=== PATIENT | female | born 1980 | race Caucasian/White ===

== ENCOUNTER 2017-09-14 10:40 | Inpatient (IN) | payer OTHER ==
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
[2017-09-14] MEDS ORDERED: NORMAL SALINE 1000 ML 1,000 ML IV PRN ×2 (11:30→13:50)
[2017-09-14] MEDS ORDERED: ONDANSETRON 4 MG TAB.RAPDIS PO ONE (11:41)
[2017-09-14 11:48] LABS: ABSOLUTE BASOPHILS # (AUTO) 0.1 10^3/uL (0.0-0.2); ABSOLUTE LYMPHOCYTES (AUTO) 1.2 10^3/uL (0.5-4.7); ABSOLUTE MONOCYTES (AUTO) 0.5 10^3/uL (0.1-1.4); ABSOLUTE NEUT (AUTO) 10.9 10^3/uL (1.7-8.2); BASOPHILS % (AUTO) 0.4 % (0-2); HEMATOCRIT 47.1 % (36.0-47.0); HEMOGLOBIN 15.5 g/dL (12.0-15.5); LYMPHOCYTES % (AUTO) 9.9 % (13-45); MEAN CORPUSCULAR VOLUME 88 fl (80-97); MONOCYTES % (AUTO) 3.6 % (3-13); PLATELET COUNT 212 10^3/uL (150-450); RED BLOOD COUNT 5.37 10^6/uL (3.72-5.28); RED CELL DISTRIBUTION WIDTH 13.7 % (11.5-14.0); SEGMENTED NEUTROPHILS % (AUTO) 86.1 % (42-78); TOTAL CELLS COUNTED % (AUTO) 100 %; WHITE BLOOD COUNT 12.7 10^3/uL (4.0-10.5)
[2017-09-14 11:58] LABS: APPEARANCE,URINE SLIGHTLY-CLOUDY; BILIRUBIN,URINE NEGATIVE (NEGATIVE); COLOR,URINE YELLOW; GLUCOSE, URINE >=500 mg/dL (NEGATIVE); KETONES,URINE 80 mg/dL (NEGATIVE); LEUKOCYTE ESTERASE,URINE MODERATE (NEGATIVE); NITRITE,URINE NEGATIVE (NEGATIVE); PROTEIN,URINE 100 mg/dL (NEGATIVE); URINE SPECIFIC GRAVITY 1.027; UROBILINOGEN,URINE NEGATIVE mg/dL (<2.0)
[2017-09-14 12:18] LABS: ALANINE AMINOTRANSFERASE 21 U/L (9-52); ALBUMIN 5.8 g/dL (3.5-5.0); ALKALINE PHOSPHATASE 98 U/L (38-126); ASPARTATE AMINO TRANSFERASE 19 U/L (14-36); BILIRUBIN,DIRECT 0.7 mg/dL (0.0-0.4); BILIRUBIN,TOTAL 1.7 mg/dL (0.2-1.3); BLOOD UREA NITROGEN 31 mg/dL (7-20); CALCIUM 10.7 mg/dL (8.4-10.2); LIPASE 48.7 U/L (23-300); POTASSIUM 5.7 mmol/L (3.6-5.0); TOTAL PROTEIN 9.7 g/dL (6.3-8.2)
[2017-09-14 12:23] LABS: CHLORIDE 94 mmol/L (98-107); SODIUM 137.4 mmol/L (137-145)
[2017-09-14] MEDS ORDERED: CEFTRIAXONE INJ 1000 MG VIAL IV ONE ×2 (12:27→12:54)
[2017-09-14 12:34] LABS: CARBON DIOXIDE 9 mmol/L (22-30)
[2017-09-14 12:38] LABS: ANION GAP 34 (5-19)
[2017-09-14 12:41] LABS: GLUCOSE 654 mg/dL (75-110)
[2017-09-14] MEDS ORDERED: INSULIN REG, HUMAN 100 UNIT/ML 3 ML VIAL (PYX) IV ONE ×2 (12:48→12:49)
[2017-09-14] MEDS ORDERED: LEVALBUTEROL HCL NEB 0.63 MG/3 ML AMPUL NEB PRN (13:43)
[2017-09-14] MEDS ORDERED: GLUCAGON,HUMAN RECOMB 1 MG INJ IM PRN (13:52)
[2017-09-14] MEDS ORDERED: DEXTROSE 50%-WATER 25 GM/50 ML DISP.SYRIN IV PRN ×2 (13:52)
[2017-09-14] MEDS ORDERED: DEXTROSE 40% GEL 15 GM TUBE PO PRN ×2 (13:52)
[2017-09-14] MEDS ORDERED: NORMAL SALINE 100 ML with INSULIN REGULAR, HUMAN 100 UNIT IV PRN ×2 (13:52)
[2017-09-14 14:38] LABS: PHOSPHORUS 6.8 mg/dL (2.5-4.5)
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
[2017-09-15 00:01] LABS: ANION GAP 13 (5-19); BLOOD UREA NITROGEN 25 mg/dL (7-20); CALCIUM 9.1 mg/dL (8.4-10.2); CARBON DIOXIDE 18 mmol/L (22-30); CHLORIDE 113 mmol/L (98-107); GLUCOSE 156 mg/dL (75-110); SODIUM 143.6 mmol/L (137-145)
[2017-09-15 00:13] LABS: POTASSIUM 3.6 mmol/L (3.6-5.0)
[2017-09-15] MEDS: POTASSI CL 20 MEQ/D5-1/2NS 1L 1,000 ML IV PRN ×2 (01:17→06:13)
[2017-09-15 03:50] LABS: ABSOLUTE LYMPHOCYTES (AUTO) 2.9 10^3/uL (0.5-4.7); ABSOLUTE MONOCYTES (AUTO) 0.8 10^3/uL (0.1-1.4); ABSOLUTE NEUT (AUTO) 6.5 10^3/uL (1.7-8.2); BASOPHILS % (AUTO) 0.3 % (0-2); HEMATOCRIT 36.6 % (36.0-47.0); HEMOGLOBIN 12.7 g/dL (12.0-15.5); LYMPHOCYTES % (AUTO) 28.3 % (13-45); MEAN CORPUSCULAR HEMOGLOBIN 28.9 pg (27.0-33.4); MEAN CORPUSCULAR HGB CONC 34.6 g/dL (32.0-36.0); MONOCYTES % (AUTO) 7.5 % (3-13); PLATELET COUNT 167 10^3/uL (150-450); RED BLOOD COUNT 4.38 10^6/uL (3.72-5.28); RED CELL DISTRIBUTION WIDTH 13.5 % (11.5-14.0); SEGMENTED NEUTROPHILS % (AUTO) 63.9 % (42-78); TOTAL CELLS COUNTED % (AUTO) 100 %; WHITE BLOOD COUNT 10.2 10^3/uL (4.0-10.5)
[2017-09-15 03:51] LABS: MEAN CORPUSCULAR VOLUME 84 fl (80-97)
[2017-09-15 04:06] LABS: ALANINE AMINOTRANSFERASE 16 U/L (9-52); ALBUMIN 3.8 g/dL (3.5-5.0); ALKALINE PHOSPHATASE 47 U/L (38-126); ANION GAP 13 (5-19); ASPARTATE AMINO TRANSFERASE 13 U/L (14-36); BILIRUBIN,DIRECT 0.3 mg/dL (0.0-0.4); BILIRUBIN,TOTAL 0.8 mg/dL (0.2-1.3); BLOOD UREA NITROGEN 27 mg/dL (7-20); CARBON DIOXIDE 19 mmol/L (22-30); CHLORIDE 112 mmol/L (98-107); CREATINE KINASE 116 U/L (30-135); GLUCOSE 187 mg/dL (75-110); POTASSIUM 4.1 mmol/L (3.6-5.0); SODIUM 143.5 mmol/L (137-145); TOTAL PROTEIN 6.8 g/dL (6.3-8.2)
[2017-09-15 04:25] LABS: PHOSPHORUS 1.7 mg/dL (2.5-4.5)
[2017-09-15] MEDS ORDERED: INSULIN GLARGINE,HUM.REC.ANLOG 1,000 UNIT/10 ML UNIT SUBCUT ONE ×3 (08:26→15:23)
[2017-09-15] MEDS ORDERED: DEXTROSE 50%-WATER 25 GM/50 ML DISP.SYRIN IV PRN (08:30)
[2017-09-15] MEDS ORDERED: DEXTROSE 40% GEL 15 GM TUBE PO PRN (08:30)
[2017-09-15] MEDS ORDERED: ONDANSETRON 4 MG TAB.RAPDIS PO PRN (08:34)
[2017-09-15] MEDS ORDERED: ONDANSETRON HCL INJ/PF 4 MG/2 ML SDV IV PRN (08:34)
[2017-09-15] MEDS: PHOSPHORUS #1 250 MG TABLET PO SCH ×2 (12:05→15:56)
[2017-09-15] MEDS: INSULIN LISPRO 100 UNIT/ML 3 ML VIAL SUBCUT SCH ×2 (12:06→15:56)
[2017-09-15 14:45] LABS: ANION GAP 13 (5-19); BLOOD UREA NITROGEN 25 mg/dL (7-20); CALCIUM 8.8 mg/dL (8.4-10.2); CARBON DIOXIDE 21 mmol/L (22-30); CHLORIDE 101 mmol/L (98-107); POTASSIUM 4.9 mmol/L (3.6-5.0); SODIUM 134.5 mmol/L (137-145)
[2017-09-15 15:16] LABS: GLUCOSE 556 mg/dL (75-110)
[2017-09-15] MEDS: INSULIN LISPRO 100 UNIT/ML 3 ML VIAL SUBCUT PRN ×2 (15:30→21:46)
--- NOTE | 2017-09-15 16:29 | PDOC PROGRESS REPORT ---
Subjective Progress Note for:: 09/15/17 Subjective:: 36 year old female with a history of insulin-dependent diabetes diagnosed 3 years ago. She has been on an insulin pump for the past year. She is on vacation visiting in the area. This morning she became sick to the stomach and has been vomiting unable to keep anything down. The patient was found to be in DKA and was started on IV fluids and an insulin drip. Insulin pump was discontinued. This morning labs showed that her anion gap was normal. She was started on Lantus and mealtime Lispro Insulin drip and IV fluids have been discontinued. We will continue to adjust her insulin dosages and monitor blood glucose. No complaints, feels better Reason For Visit: DKA Physical Exam Vital Signs: Temp Pulse Resp BP Pulse Ox 99.7 F 82 12 100/71 97 09/15/17 12:00 09/15/17 15:21 09/15/17 15:21 09/15/17 12:04 09/15/17 15:21 Intake & Output 09/14/17 09/15/17 09/16/17 06:59 06:59 06:59 Intake Total 2522 237 Output Total 250 Balance 2272 237 Weight 71.4 kg General appearance: PRESENT: no acute distress Head exam: PRESENT: normocephalic Eye exam: PRESENT: PERRLA Mouth exam: PRESENT: moist Respiratory exam: PRESENT: symmetrical, unlabored. ABSENT: crackles Cardiovascular exam: PRESENT: RRR GI/Abdominal exam: PRESENT: normal bowel sounds, soft. ABSENT: tenderness Rectal exam: PRESENT: deferred Neurological exam: PRESENT: alert, awake, oriented to person, oriented to place , oriented to time, oriented to situation Psychiatric exam: PRESENT: appropriate affect Results Laboratory Results: 09/15/17 03:34 09/15/17 14:13 09/14/17 09/15/17 09/15/17 23:40 03:34 03:34 WBC 10.2 RBC 4.38 Hgb 12.7 D Hct 36.6 MCV 84 D MCH 28.9 MCHC 34.6 RDW 13.5 Plt Count 167 Seg Neutrophils % 63.9 Lymphocytes % 28.3 Monocytes % 7.5 Eosinophils % 0.0 Basophils % 0.3 Absolute Neutrophils 6.5 Absolute Lymphocytes 2.9 Absolute Monocytes 0.8 Absolute Eosinophils 0.0 Absolute Basophils 0.0 Sodium 143.6 143.5 Potassium 3.6 D 4.1 Chloride 113 H 112 H Carbon Dioxide 18 L 19 L Anion Gap 13 13 BUN 25 H 27 H Creatinine 0.69 0.69 Est GFR ( Amer) > 60 > 60 Est GFR (Non-Af Amer) > 60 > 60 Glucose 156 H 187 H Calcium 9.1 9.0 Phosphorus 1.7 L D Magnesium 1.9 Total Bilirubin 0.8 AST 13 L ALT 16 Alkaline Phosphatase 47 Total Protein 6.8 Albumin 3.8 09/15/17 14:13 WBC RBC Hgb Hct MCV MCH MCHC RDW Plt Count Seg Neutrophils % Lymphocytes % Monocytes % Eosinophils % Basophils % Absolute Neutrophils Absolute Lymphocytes Absolute Monocytes Absolute Eosinophils Absolute Basophils Sodium 134.5 L Potassium 4.9 Chloride 101 Carbon Dioxide 21 L Anion Gap 13 BUN 25 H Creatinine 0.73 Est GFR ( Amer) > 60 Est GFR (Non-Af Amer) > 60 Glucose 556 H* Calcium 8.8 Phosphorus Magnesium Total Bilirubin AST ALT Alkaline Phosphatase Total Protein Albumin 09/15/17 03:34 Creatine Kinase 116 Assessment & Plan - Diagnosis (1) DKA (diabetic ketoacidoses) Qualifiers: Diabetes mellitus type: type 1 Is this a current diagnosis for this admission?: Yes Plan: ? Due to pump malfunction vs Insulin due to high temperatures. Resolving. 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 (2) Hypophosphatemia Is this a current diagnosis for this admission?: Yes Plan: Replace - Time Time Spent with patient: 35 or more minutes
[2017-09-15] MEDS ORDERED: INSULIN GLARGINE,HUM.REC.ANLOG 300 UNIT/3 ML INSULN.PEN SUBCUT ONE (16:30)
[2017-09-15 21:26] LABS: ANION GAP 14 (5-19); BLOOD UREA NITROGEN 25 mg/dL (7-20); CALCIUM 9.3 mg/dL (8.4-10.2); CARBON DIOXIDE 22 mmol/L (22-30); CHLORIDE 104 mmol/L (98-107); GLUCOSE 366 mg/dL (75-110); POTASSIUM 4.3 mmol/L (3.6-5.0); SODIUM 139.6 mmol/L (137-145)
[2017-09-15 23:43] VITALS: BP 103/60
[2017-09-16 04:17] LABS: ABSOLUTE LYMPHOCYTES (AUTO) 2.9 10^3/uL (0.5-4.7); ABSOLUTE MONOCYTES (AUTO) 0.5 10^3/uL (0.1-1.4); BASOPHILS % (AUTO) 0.6 % (0-2); HEMATOCRIT 37.9 % (36.0-47.0); HEMOGLOBIN 13.2 g/dL (12.0-15.5); LYMPHOCYTES % (AUTO) 44.7 % (13-45); MEAN CORPUSCULAR HGB CONC 34.8 g/dL (32.0-36.0); MEAN CORPUSCULAR VOLUME 83 fl (80-97); MONOCYTES % (AUTO) 8.3 % (3-13); PLATELET COUNT 139 10^3/uL (150-450); RED BLOOD COUNT 4.55 10^6/uL (3.72-5.28); RED CELL DISTRIBUTION WIDTH 13.7 % (11.5-14.0); SEGMENTED NEUTROPHILS % (AUTO) 46.4 % (42-78); TOTAL CELLS COUNTED % (AUTO) 100 %; WHITE BLOOD COUNT 6.6 10^3/uL (4.0-10.5)
[2017-09-16] MEDS: INSULIN LISPRO 100 UNIT/ML 3 ML VIAL SUBCUT SCH (07:18)
[2017-09-16] MEDS: INSULIN LISPRO 100 UNIT/ML 3 ML VIAL SUBCUT PRN (07:19)
[2017-09-16] MEDS: PHOSPHORUS #1 250 MG TABLET PO SCH (07:32)
[2017-09-16] MEDS ORDERED: INSULIN GLARGINE,HUM.REC.ANLOG 300 UNIT/3 ML INSULN.PEN SUBCUT SCH (10:00)
[2017-09-16] MEDS ORDERED: INSULIN GLARGINE,HUM.REC.ANLOG 1,000 UNIT/10 ML UNIT SUBCUT SCH (10:00)
--- NOTE | 2017-09-16 11:50 | DISCHARGE SUMMARY E ---
Discharge Summary NAME: MICHAEL FORRESTER : 1980 AGE: 36Y ADMITTED: 09/14/2017 DISCHARGED: 09/16/2017 CODE STATUS: FULL CODE. PRIMARY CARE PROVIDER: Dr. Newman - [place]. SWITCH COUPLER: Dr. Ferreira - [place]. DISCHARGE DIAGNOSIS: 1. Diabetic ketoacidosis and diabetes mellitus type 1. 2. Tobacco dependency continuous. DISCHARGE MEDICATIONS: Include: 1. Lantus 30 units subcutaneously daily, 3 insulin pens with 0 refills. 2. Humalog 4 units subcutaneously before meals and before meals and bedtime sliding scale coverage. DIET: Diabetic. ACTIVITY: As tolerated. CONDITION: Good. DIAGNOSTICS: Lab values are as follows: Hematology obtained on 09/16/2017: WBCs 6.6, hematocrit is 13.2, hematocrit is 39.7, platelet count is 139,000. Chemistries obtained on 09/15/2017: Sodium is 139, potassium is 4.3, chloride is 104, carbon dioxide 22, BUN 25, creatinine is 0.63, glucose 339, calcium is 9.3, magnesium is 1.7, bilirubin 0.3, AST 13, ALT 16, alk phos is 47, CK 116, total protein of 6.8, albumin 3.8. Lipase is 48.7. The hCG is less than 2.39. Urinalysis obtained on 09/14/2017: Color yellow, appearance slightly cloudy, pH is 5.0, specific gravity is 1.027, protein 100, glucose greater than 500, ketones 80, occult blood small, nitrite negative, bilirubin negative, urobilinogen is negative, leukocyte esterase is moderate, WBCs are 52, RBCs 13, mucus rare. Microbiology: Urine culture obtained on 09/14/2017 reveals no growth. PHYSICAL EXAMINATION: GENERAL: The patient is a well-developed, well-nourished 36-year-old female who is awake, alert, and oriented to person, place, time, and situation. She is verbal, conversational, and does not appear to be in any distress. VITAL SIGNS: Temperature is 98.6, pulse 73, respirations 17, blood pressure is 103/60, oxygen saturation is 98% on room air. SKIN: Warm and dry. No rash. She is not diaphoretic. HEENT: Pupils equal, round, and reactive to light and accommodation. NECK: There is no evidence of JVD. CARDIOVASCULAR SYSTEM: Normal sinus rhythm. CHEST: Symmetrical, unlabored. ABDOMEN: Nondistended. EXTREMITIES: There is no edema. PSYCHIATRIC: Appropriate affect, pleasant mood. HISTORY OF PRESENT ILLNESS: The patient is a 36-year-old female with a past medical history of diabetes mellitus type 1. The patient presented to the emergency department with a chief complaint of vomiting. The patient has been on an insulin pump for about a year. She was traveling to the area on vacation, when she became quite sick to her stomach and was unable to keep anything down. Upon presentation to the emergency department, the patient was found to be in DKA. Therefore, she was given IV fluid bolus and started on insulin drip. The patient's insulin pump was discontinued. The patient denied any fever, dysuria, and was referred to the hospitalist for admission and management. HOSPITAL COURSE: The patient was initially admitted to the critical care unit. The patient was aggressively hydrated, started on an insulin drip per protocol. The patient's gap closed and the patient was transitioned over to basal dose Lantus with sliding scale Novolog coverage. The patient's pump was discontinued for now and the patient is going to inject for this period of time. The patient was able to tolerate her diet without issue. Her gap remained closed and the patient is stable enough for discharge. The patient is to follow with her apprentice upon returning home. Spent 3 minutes discussing smoking cessation education. The patient declines any pharmacological intervention at this time. DISCHARGE PLAN: The patient is advised to follow up with her apprentice, Dr. Ferreira, in [place], [place], upon returning home. TIME SPENT: Time spent on this discharge, including assessment and plan, physical examination, patient education, and review of records was 25 minutes. DICTATING PHYSICIAN: MILY MOREIRA NP [id number] PHY#: [id number] ID: [id number] JOB#: [id number] ACCT: [id number] cc:Ingrid GORDON NP > MTDD
== END 2017-09-16 09:00 | disposition home or self-care (01) | DRG 639 ==
LOC: ER 10:40 → EH 14:29 → ICU 19:35
PROVIDERS: ADMIT Internal Medicine; ATTEND Internal Medicine
DX: E10.10 Type 1 diabetes mellitus with ketoacidosis without coma (principal); Z96.41 Presence of insulin pump (external) (internal); E83.39 Other disorders of phosphorus metabolism; L55.9 Sunburn, unspecified; F17.200 Nicotine dependence, unspecified, uncomplicated; Z79.4 Long term (current) use of insulin; Z90.49 Acquired absence of other specified parts of digestive tract; Z82.49 Family history of ischemic heart disease and other diseases of the circulatory system
CPT/HCPCS: 36415; 80048; 80053; 80076; 81001; 82550; 82947; 82962; 83036; 83690; 83735; 84100; 84702; 84703; 85025; 87086; 96365; 99285; J0696; J1815; J3480; J3490; J7030; S0119